=== PATIENT | male | born 1970 | race African-American/Black ===

== ENCOUNTER 2021-02-04 13:28 | Observation (INO) ==
[2021-02-04] MEDS ORDERED: ACETAMINOPHEN 325 MG TABLET PO PRN (16:59)
[2021-02-04] MEDS ORDERED: ONDANSETRON 4 MG/2 ML VIAL IV PRN (16:59)
[2021-02-04] MEDS ORDERED: DEXTROSE 50% 25 GM/50 ML VIAL IV PRN (16:59)
[2021-02-04] MEDS ORDERED: GLUCAGON 1 MG VIAL IM PRN (16:59)
[2021-02-04] MEDS ORDERED: ENOXAPARIN 40 MG/0.4 ML SYRINGE SUBCUT SCH (17:00)
[2021-02-04] MEDS ORDERED: LABETALOL 20 MG/4 ML SYRINGE IV PRN (17:02)
[2021-02-04] MEDS ORDERED: chlordiazePOXIDE 10 MG CAPSULE PO PRN (17:25)
[2021-02-04 18:36] LABS: Risk Ratio 10.2; VLDL CHOLESTEROL 301.8 MG/DL
[2021-02-04] MEDS: SODIUM CHLORIDE 0.9% 1,000 ML IV SCH (18:54)
[2021-02-04] MEDS: NICOTINE 21 MG/24 HR PATCH TRANSDERM SCH (18:54)
[2021-02-04] MEDS ORDERED: ATORVASTATIN 80 MG TABLET PO SCH (21:00)
[2021-02-04 21:02] LABS: Barbiturates Screen,Urine Negative (Negative); Benzodiazepines Screen,Urine Negative (Negative); Cannabinoid Screen,Urine Negative (Negative); Opiate Screen,Urine Negative (Negative); Phencyclidine Screen,Urine Negative (Negative)
[2021-02-05] MEDS: SODIUM CHLORIDE 0.9% 1,000 ML IV SCH ×2 (02:42→18:00)
[2021-02-05 06:28] LABS: Basophils # 0.1 10*3/uL (0.0-0.2); Basophils % 1.2 % (0.0-0.8); Eosinophils # 0.2 10*3/uL (0.0-0.87); Eosinophils % 3.1 % (0.00-10.9); Hematocrit 43.5 VOL% (42.0-52.0); Hemoglobin 14.8 GM/DL (14.0-18.0); Immature Granulocytes % 0.4 %; Immature Granulocytes Absolute 0.02 #; Lymphocytes # 2.1 10*3/uL (1.4-4.0); Lymphocytes % 40.2 % (21.2-54.2); Mean Corpuscular Volume 84.1 FL (87-102); Mean Platelet Volume 9.8 FL (9.6-12.0); Monocytes % 10.3 % (1.7-12.7); Neutrophils % 44.8 % (38.7-73.9); Platelet Count 277 T/CUMM (130-400); Red Blood Count 5.17 MC/CUMM (3.8-5.5); Red Cell Distribution Width 13.7 % (9.3-17.3); White Blood Count 5.1 T/CUMM (4-12)
[2021-02-05 06:42] LABS: Albumin 2.7 G/DL (3.4-5.0); Calcium 7.9 MG/DL (8.5-10.1); Osmolality,Calculated 271.8 MOS/KG (273-304); Potassium 3.8 MMOL/L (3.5-5.1)
[2021-02-05] MEDS ORDERED: MULTIVITAMIN (CENTRUM) TABLET PO SCH (09:00)
[2021-02-05] MEDS ORDERED: THIAMINE 100 MG TABLET PO SCH (09:00)
[2021-02-05] MEDS ORDERED: ASPIRIN 325 MG TABLET PO SCH (09:00)
[2021-02-05] MEDS ORDERED: FOLIC ACID 1 MG TABLET PO SCH (09:00)
[2021-02-05] MEDS: NICOTINE 21 MG/24 HR PATCH TRANSDERM SCH (09:19)
[2021-02-05] MEDS: KETOROLAC 0.5% OPH SOLN 5 ML BOTTLE LEFT EYE SCH ×2 (13:44→18:01)
[2021-02-05 16:21] VITALS: BP 115/52
== END 2021-02-05 21:03 | disposition home or self-care (01) ==
LOC: N.ED 13:28 → N.EDINP 13:28 → SUATTDRO 16:59 → N.TELEN 17:38
PROVIDERS: ADMIT Internal Medicine; ATTEND Internal Medicine Geriatric Medicine